=== PATIENT | male | born 1985 | race Caucasian/White ===

== ENCOUNTER 2018-04-15 22:21 | Emergency (ER) | payer BC, OTHER ==
[2018-04-15 22:45] VITALS: BP 125/85; PULSE 69; TEMP 98.7; BMI 25.7
--- NOTE | 2018-04-15 23:13 | PDOC ---
History of Present Illness - General Chief Complaint: Vomiting/Diarrhea Stated Complaint: Vomiting/Diarrhea/ABD PAIN Time Seen by Provider: 04/15/18 23:12 Past History - Past Medical History Allergies/Adverse Reactions: Allergies Allergy/AdvReac Type Severity Reaction Status Date / Time No Known Allergies Allergy Unverified 06/15/14 22:05 Home Medications: Ambulatory Orders Lidocaine 2% Viscous Oral/Top [Xylocaine 2% Viscous] 10 ml MM TID PRN #100 ml Valacyclovir HCl [Valtrex -] 1,000 mg PO BID #14 tablet 06/15/14 COPD: No - Suicide/Smoking/Psychosocial Hx Smoking History: Never smoked Have you smoked in the past 12 months: No Information on smoking cessation initiated: No Hx Alcohol Use: No Drug/Substance Use Hx: No Substance Use Type: None *Physical Exam - Vital Signs Last Vital Signs Temp Pulse Resp BP Pulse Ox 98.7 F 69 18 125/85 100 04/15/18 22:41 04/15/18 22:41 04/15/18 22:41 04/15/18 22:41 04/15/18 22:41
[2018-04-15] MEDS ORDERED: SODIUM CHLORIDE 1,000 ML IV STA (23:17)
[2018-04-15] MEDS ORDERED: ONDANSETRON 4 MG/2 ML VIAL IVPUSH STA (23:17)
[2018-04-15] MEDS ORDERED: ONDANSETRON 4 MG/2 ML VIAL ONE (23:28)
--- NOTE | 2018-04-15 23:44 | PDOC ---
History of Present Illness - General History Source: Patient Exam Limitations: No Limitations - History of Present Illness Initial Comments: 04/15/18 23:47 The patient is a 32-year-old male, with no past medical history, who presents to the ED with nausea, vomiting, and diarrhea that began 1 hour prior to presentation. Patient believes that he has food poisoning after eating coconut candies that were left in his car for 2 days. had some of the candy as well and is not experiencing any symptoms. Patient is complaining of epigastric discomfort. The patient denies any fevers, chills, or constipation. Denies any chest pain or shortness of breath. Denies any urinary symptoms. Allergies: NKA Surgical History: None reported. Social History: None reported. <Alba Luciano - Last Filed: 04/15/18 23:47> <Krystal Vargas - Last Filed: 04/16/18 02:36> - General Chief Complaint: Vomiting/Diarrhea Stated Complaint: Vomiting/Diarrhea/ABD PAIN Time Seen by Provider: 04/15/18 23:12 Past History <Alba Luciano - Last Filed: 04/15/18 23:47> - Past Medical History COPD: No - Suicide/Smoking/Psychosocial Hx Smoking History: Never smoked Have you smoked in the past 12 months: No Information on smoking cessation initiated: No Hx Alcohol Use: No Drug/Substance Use Hx: No Substance Use Type: None <Krystal Vargas - Last Filed: 04/16/18 02:36> - Past Medical History Allergies/Adverse Reactions: Allergies Allergy/AdvReac Type Severity Reaction Status Date / Time No Known Allergies Allergy Unverified 06/15/14 22:05 Home Medications: Ambulatory Orders Lidocaine 2% Viscous Oral/Top [Xylocaine 2% Viscous] 10 ml MM TID PRN #100 ml Valacyclovir HCl [Valtrex -] 1,000 mg PO BID #14 tablet 06/15/14 Ondansetron [Zofran *Odt*] 8 mg SL TID PRN #21 od.tablet 04/16/18 Review of Systems - Review of Systems Able to Perform ROS?: Yes Comments:: 04/15/18 23:47 CONSTITUTIONAL: Absent: fever, chills, diaphoresis, generalized weakness, malaise, loss of appetite HEENT: Absent: rhinorrhea, nasal congestion, throat pain, throat swelling, difficulty swallowing, mouth swelling, ear pain, eye pain, visual Changes CARDIOVASCULAR: Absent: chest pain, syncope, palpitations, irregular heart rate, lightheadedness , peripheral edema RESPIRATORY: Absent: cough, shortness of breath, dyspnea with exertion, orthopnea, wheezing, stridor, hemoptysis GASTROINTESTINAL: Present: abdominal pain, nausea, vomiting, diarrhea Absent abdominal distension, constipation, melena, hematochezia GENITOURINARY: Absent: dysuria, frequency, urgency, hesitancy, hematuria, flank pain, genital pain MUSCULOSKELETAL: Absent: myalgia, arthralgia, joint swelling SKIN: Absent: rash, itching, pallor HEMATOLOGIC/IMMUNOLOGIC: Absent: easy bleeding, easy bruising, lymphadenopathy, frequent infections ENDOCRINE: Absent: unexplained weight gain, unexplained weight loss, heat intolerance, cold intolerance NEUROLOGIC: Absent: headache, focal weakness or paresthesias, dizziness, unsteady gait, seizure, mental status changes, bladder or bowel incontinence PSYCHIATRIC: Absent: anxiety, depression, suicidal or homicidal ideation, hallucinations. <Alba Luciano - Last Filed: 04/15/18 23:47> *Physical Exam - Vital Signs Last Vital Signs Temp Pulse Resp BP Pulse Ox 98.7 F 69 18 125/85 100 04/15/18 22:41 04/15/18 22:41 04/15/18 22:41 04/15/18 22:41 04/15/18 22:41 - Physical Exam Comments: 04/15/18 23:48 GENERAL: Well developed, well nourished. Awake and alert. No acute distress. HEENT: Normocephalic, atraumatic. PERRLA, EOMI. No conjunctival pallor. Sclera are non- icteric. Moist mucous membranes. Oropharynx is clear. NECK: Supple. Full ROM. No JVD. Carotid pulses 2+ and symmetric, without bruits. No thyromegaly. No lymphadenopathy. CARDIOVASCULAR: Regular rate and rhythm. No murmurs, rubs, or gallops. Distal pulses are 2+ and symmetric. PULMONARY: No evidence of respiratory distress. Lungs clear to auscultation bilaterally. No wheezing, rales or rhonchi. ABDOMINAL: (+) Epigastric tenderness to palpation. Soft. Non-distended. No rebound or guarding. No organomegaly. Normoactive bowel sounds. MUSCULOSKELETAL Normal range of motion at all joints. No bony deformities or tenderness. No CVA tenderness. EXTREMITIES: No cyanosis. No clubbing. No edema. No calf tenderness. SKIN: Warm and dry. Normal capillary refill. No rashes. No jaundice. NEUROLOGICAL: Alert, awake, appropriate. Cranial nerves 2-12 intact. No deficits to light touch and temperature in face, upper extremities and lower extremities. No motor deficits in the in face, upper extremities and lower extremities. PSYCHIATRIC: Cooperative. Good eye contact. Appropriate mood and affect. <Alba Luciano - Last Filed: 04/15/18 23:47> - Vital Signs Last Vital Signs Temp Pulse Resp BP Pulse Ox 98.7 F 69 18 125/85 100 04/15/18 22:41 04/15/18 22:41 04/15/18 22:41 04/15/18 22:41 04/15/18 22:41 <Krystal Vargas - Last Filed: 04/16/18 02:36> ED Treatment Course - LABORATORY CBC & Chemistry Diagram: 04/16/18 00:02 04/16/18 00:02 <Krystal Vargas - Last Filed: 04/16/18 02:36> *DC/Admit/Observation/Transfer - Attestations Scribe Attestion: 04/15/18 23:49 Documentation prepared by Alba Luciano, acting as medical insurance collector for Krystal Vargas MD. <Alba Luciano - Last Filed: 04/15/18 23:47> <Krystal Vargas - Last Filed: 04/16/18 02:36> Diagnosis at time of Disposition: Gastroenteritis - Discharge Dispostion Disposition: HOME Condition at time of disposition: Stable - Prescriptions Prescriptions: Ondansetron [Zofran *Odt*] 8 mg SL TID PRN #21 od.tablet PRN Reason: Nausea And/Or Vomiting - Patient Instructions Printed Discharge Instructions: DI for Viral Gastroenteritis -- Adult Additional Instructions: ADVANCE YOUR DIET TOLERATED,START WITH FLUIDS FIRST AND THEN ADVANCE TO BANANAS,DRY TOAST,APPLESAUCE,PLAIN RICE IF YOU DEVELOP INCREASING ABDOMINAL PAIN OR FEVER, RETURN TO THE ER SUPERVISOR CONTINUOUS WELD PIPE MILL YOUR MEDICATIONS AT [facility]
[2018-04-16 00:06] LABS: BASO % 0.3 % (0-2.0); EOS % 0.2 % (0-4.5); HEMATOCRIT 49.3 % (35.4-49); HEMOGLOBIN 16.5 GM/dL (11.7-16.9); LYMPH % 13.4 % (8-40); MCH 28.7 pg (25.7-33.7); MCHC 33.4 g/dl (32.0-35.9); MEAN CELL VOLUME 85.8 fl (80-96); MEAN PLT VOLUME 7.7 fl (7.5-11.1); MONO % 4.2 % (3.8-10.2); NEUT % 81.9 % (42.8-82.8); PLATELET COUNT 337 K/MM3 (134-434); RBC 5.75 M/mm3 (4.00-5.60); RDW 13.3 % (11.9-15.9); WHITE BLOOD COUNT 13.7 K/mm3 (4.0-10.0)
[2018-04-16 00:31] LABS: ALBUMIN 4.6 g/dl (3.4-5.0); ANION GAP 10 MMOL/L (8-16); BILIRUBIN,TOTAL 0.4 mg/dL (0.2-1); BLOOD UREA NITROGEN 14 mg/dL (7-18); CALCIUM 9.4 mg/dL (8.5-10.1); CHLORIDE 105 mmol/L (98-107); CO2 25 mmol/L (21-32); CREATININE 1.1 mg/dL (0.55-1.3); GLUCOSE,RANDOM 131 mg/dL (74-106); LIPASE 107 U/L (73-393); POTASSIUM 3.6 mmol/L (3.5-5.1); SGOT/AST 29 U/L (15-37); SGPT/ALT 34 U/L (13-61); SODIUM 140 mmol/L (136-145); TOT PROT 8.4 g/dl (6.4-8.2)
[2018-04-16 00:32] LABS: ALK PHOS 75 U/L (45-117)
[2018-04-16] MEDS ORDERED: LOPERAMIDE HCL 2 MG CAPSULE PO ONE (02:33)
[2018-04-16] MEDS ORDERED: LOPERAMIDE HCL 2 MG CAPSULE ONE (02:37)
== END 2018-04-16 02:45 | disposition home or self-care (01) ==
LOC: JER 22:21
PROC: 3E033GC Introduction of Other Therapeutic Substance into Peripheral Vein, Percutaneous Approach (ICD-10-PCS; principal; 2018-04-15)
DX: K52.9 Noninfective gastroenteritis and colitis, unspecified (principal)
CPT/HCPCS: 36415; 80053; 83690; 85025; 99282-25; J7030